=== PATIENT | female | born 1990 | race Asian ===

== ENCOUNTER 2018-05-17 22:44 | Emergency (ER) | payer OTHER ==
[2018-05-17 22:51] VITALS: BP 103/63; PULSE 90; TEMP 99.1; BMI 24.3
[2018-05-17] MEDS ORDERED: ACETAMINOPHEN 325 MG TABLET (FP) PO ONE (22:51)
[2018-05-17] MEDS ORDERED: ACETAMINOPHEN 325 MG TABLET (FP) ONE (22:56)
[2018-05-17] MEDS ORDERED: ONDANSETRON *ODT* 4 MG TABLET SL ONE (23:25)
[2018-05-17] MEDS ORDERED: ONDANSETRON *ODT* 4 MG TABLET ONE (23:27)
[2018-05-17] MEDS ORDERED: KETOROLAC TROMETHAMINE 15 MG/ML VIAL IVPUSH ONE (23:31)
[2018-05-17] MEDS ORDERED: SODIUM CHLORIDE 0.9% 500 ML INFUS.BAG IV ONE (23:31)
--- NOTE | 2018-05-17 23:35 | PDOC ---
History of Present Illness - General Chief Complaint: Respiratory Stated Complaint: FEVER,COUGH X ONE WEEK Time Seen by Provider: 05/17/18 22:51 History Source: Patient Exam Limitations: No Limitations - History of Present Illness Initial Comments: 05/17/18 23:35 HPI 27 YOF with no medical history presenting with fever Tmax 103, headache, cough and congestion, sore throat, body aches and malaise x 1 week. Associated with nausea, NBNB emesis and some diarrhea. Tolerating PO intake, but decreased appetite. Has been taking tylenol/motrin with some relief. Denieschest pain, SOB, palpitation, dizziness, weakness, abdominal pain, bladder and bowel problems, leg swelling, rash. No sick contacts or travel. No suspicious food intake Allergies: NKA Past Medical History: none Social history: Lives with family. No smoking. No alcohol. No illicit drugs. Surgical history: none Review of systems Constitutional: +fevers or chills. HEENT: +headache or dizziness. +congestion, sore throat. CVS: no cp or syncope. Resp: no sob. +cough Gastrointestinal: no abdominal pain, +nausea vomiting and diarrhea. Genitourinary: no urinary sx, hematuria. MUSCULOSKELETAL: No joint pain and swelling. No neck or back pain. +myalgias SKIN: no redness or skin changes, no discharge, no rash. No wounds. Hematologic: no easy bruising/bleeding. NEUROLOGIC: No headache, dizziness, LOC or altered mental status. No weakness, numbness or tingling. Allergic/Immunologic: no allergies All other systems reviewed and negative, or as documented in HPI. Physical exam: General: malaised appearing, NAD. HEENT: NCAT, PERRL, EOMI, clear conjunctiva, anicteric, moist mucus membranes, clear oropharynx, no oral lesions.. Neck: neck supple, FROM Resp: CTAB, normal and even respirations, no respiratory distress CVS: RRR, no murmurs, 2+ peripheral pulses throughout, no peripheral edema Abdomen: soft, NTND, no peritoneal signs. Back: nontender, normal inspection and ROM MSK: no edema, SANTIAGO x4, ROM intact. +generalized muscle tenderness throughout. Extremities: no edema, Neuro: alert Skin: very warm, well perfused, cap refill <2 sec, normal color Past History - Past Medical History Allergies/Adverse Reactions: Allergies Allergy/AdvReac Type Severity Reaction Status Date / Time No Known Allergies Allergy Verified 05/17/18 22:46 Home Medications: Ambulatory Orders Ondansetron [Zofran Odt -] 4 mg SL TID PRN #9 od.tablet 05/18/18 COPD: No Other medical history: DENIES - Suicide/Smoking/Psychosocial Hx Smoking History: Never smoked Have you smoked in the past 12 months: No Information on smoking cessation initiated: No Hx Alcohol Use: No Drug/Substance Use Hx: No *Physical Exam - Vital Signs Last Vital Signs Temp Pulse Resp BP Pulse Ox 99.1 F 90 16 103/63 98 05/17/18 22:47 05/17/18 22:47 05/17/18 22:47 05/17/18 22:47 05/17/18 22:47 ED Treatment Course - ADDITIONAL ORDERS Additional order review: Laboratory Results 05/17/18 23:00 Urine HCG, Qual Negative - RADIOLOGY Radiology Studies Ordered: 05/18/18 00:15 Interpreted by ED Physician: CXR (1 view): no acute abnormality: no infiltrates , bones appear intact and structures normal alignment, cardiac silhouette within normal limits. no free air under diaphragm, no pneumothorax. Chest X-Ray Result: No Infiltrates - Medications Given in the ED: ED Medications Discontinued Medications Generic Name Dose Route Start Last Admin Trade Name Freq PRN Reason Stop Dose Admin Acetaminophen 650 mg 05/17/18 22:51 05/17/18 23:02 Tylenol - PO 05/17/18 22:52 650 mg ONCE ONE Administration Ondansetron HCl 4 mg 05/17/18 23:25 05/17/18 23:27 Zofran Odt - SL 05/17/18 23:26 4 mg ONCE ONE Administration Medical Decision Making - Medical Decision Making 05/17/18 23:36 hpi as documented VS wnl, low grade fever noted. no hypoxia. malaised appearing, but nontoxic ddx influenza, viral syndrome, pharyngitis, URI, strep throat, dehydration, enteritis abdomen soft and NT, given IVF hydration and antipyretics/analgesia with improvement strep neg, f/u throat cultures out of flu testing window or tamiflu benefit, defer testing in low risk patient w/o comorbidities. chest xray neg for acute pathology most likely viral syndrome, supportive care and otc analgesia/antipyretics indicated. Dispo: Pt informed of my clinical impression, treatment recommendations and disposition plan. All questions answered to patient's satisfaction and expressed understanding and comfort with this. Reasons for returning to the ED sooner discussed with the patient otherwise, follow up with primary care physician. At the time of discharge, the patient is alert, clinically improved, tolerating po and verbalizes understanding of instructions. Patient does not suffer from an acute life-threatening medical condition at this time she is safe for outpatient follow-up. 05/17/18 23:37 05/18/18 00:14 *DC/Admit/Observation/Transfer Diagnosis at time of Disposition: Viral syndrome, Pharyngitis - Discharge Dispostion Disposition: HOME Condition at time of disposition: Stable Decision to Admit order: No - Prescriptions Prescriptions: Ondansetron [Zofran Odt -] 4 mg SL TID PRN #9 od.tablet PRN Reason: Nausea - Referrals Referrals: [facility] [place] Internal [facility] [Provider Group] [facility] [Provider Group] - Patient Instructions Printed Discharge Instructions: DI for Viral Pharyngitis, DI for Viral Syndrome Additional Instructions: 1) Please follow-up with your primary care doctor in the next 1-2 days. Please call tomorrow for for any urgent issues. 2) You were given a copy of the tests performed today. Please bring the results with you and review them with your primary care doctor. Your laboratory / imaging results were normal, 3) If you have any worsening of symptoms or any other concerns please return to the ED immediately. Return if worsening symptoms including fevers, headache, vomiting, visual or hearing disturbances, abdominal pain, chest pain, shortness of breath, syncope, dehydration, inability to take things by mouth/vomiting, altered mental status, or worsening concerning symptoms. 4) Please continue taking your home medications as directed. your medications on discharge include tylenol and or motrin for your pain/fevers . side effects may include upset stomach, abdominal pain, vomiting, or diarrhea. do not drink alcohol with your medications. you may take zofran every 8 hours as needed for the nausea/vomiting Stay well hydrated and rest adequately. an appointment. If you cannot follow-up with your primary care doctor please return to the ED salt water gargles and warm lemon tea is appropriate as well for soothing qualities for sore throat/cough. minimize spread of infection given contagious nature, and cover your mouth and wash your hands adequately with soap and water. Stay well hydrated and rest. - Post Discharge Activity Forms/Work/School Notes: Back to Work
[2018-05-17] MEDS ORDERED: KETOROLAC TROMETHAMINE 15 MG/ML VIAL ONE (23:43)
== END 2018-05-18 00:46 | disposition home or self-care (01) ==
LOC: FER 22:44
PROC: 3E0333Z Introduction of Anti-inflammatory into Peripheral Vein, Percutaneous Approach (ICD-10-PCS; principal; 2018-05-17)
PROC: 3E0337Z Introduction of Electrolytic and Water Balance Substance into Peripheral Vein, Percutaneous Approach (ICD-10-PCS; 2018-05-17)
DX: B34.9 Viral infection, unspecified (principal); J02.9 Acute pharyngitis, unspecified
CPT/HCPCS: 71046-TC-FY; 84703; 87070; 87077; 87880; 96361; 96374; 99281-25; Q0162